=== PATIENT | male | born 1950 | race Caucasian/White ===

== ENCOUNTER 2017-12-29 17:52 | Observation (INO) | payer OTHER, MEDICARE ==
[~2017-12-29] VITALS: Ht 175.3 cm; Wt 67.1 kg
[~2017-12-29 17:52] MED LIST: BETA CAROT10000 UNIT PO; BETAPACE80 MG PO; CALCIUM600 M3 PO; CAYENNE450 MG PO; COZAAR50 M1 PO; ECHINACEA350 MG PO; ELIQUIS5 M1 PO; INTESTINAL FORMULA PO; LYCOPENE PO; MY FAVORITE MU237 ML PO; PROSTATE THERA1 EACH PO; VITAMIN C500 M6 PO; VITAMIN E100 UNI3 PO; [UNRECOGNIZED DRUG - OTHER] PO; [UNRECOGNIZED DRUG - OTHER] PO
[2017-12-29 18:50] LABS: ABSOLUTE BASOPHIL COUNT 0 /CUMM (0.0-0.2); ABSOLUTE EOSINOPHIL COUNT 0.1 /CUMM (0.0-0.7); ABSOLUTE GRANULOCYTE CT 6.9 /CUMM (1.4-6.5); ABSOLUTE LYMPH COUNT 1.1 /CUMM (1.2-3.4); ABSOLUTE MONOCYTE COUNT 0.7 /CUMM (0.10-0.60); BASOPHIL % 0 % (0.0-2.0); EOSINOPHIL % 1.2 % (0-5); GRANULOCYTE % 78.8 % (42.2-75.2); HEMATOCRIT 42.4 % (42-52); MEAN CORPUSCULAR HGB CONC 33.7 G/DL (33.0-37.0); MEAN CORPUSCULAR VOLUME 94.9 FL (80.0-94.0); MEAN PLATELET VOLUME 7.7 FL (7.4-10.4); PLATELET COUNT 253 /CUMM (130-400); RBC DISTRIBUTION WIDTH 13.5 % (11.5-14.5); RED BLOOD CELL CT 4.47 /CUMM (4.70-6.10); WHITE BLOOD CELL COUNT 8.8 /CUMM (4.8-10.8)
--- NOTE | 2017-12-29 18:56 | ED GENERAL ADULT ---
History of Present Illness General Chief Complaint: Psychiatric Related Complaint Stated Complaint: CONFUSION Source: patient Exam Limitations: confusion, poor historian Vital Signs & Intake/Output Vital Signs & Intake/Output Vital Signs Date Time Temp Pulse Resp B/P B/P Pulse O2 O2 Flow FiO2 Mean Ox Delivery Rate 12/29 2251 97.8 72 20 123/79 97 12/29 1806 98.4 111 20 118/76 99 Room Air ED Intake and Output 12/30 0000 12/29 1200 Intake Total Output Total Balance Patient 148 lb Weight Weight Reported by Patient Measurement Method Allergies Coded Allergies: No Known Allergies (07/31/17) Reconcile Medications Apixaban (Eliquis) 5 MG TABLET 5 MG PO BID ATRIAL FIBRILLATION TAKE DIRECTED Ascorbate Calcium (Vitamin C) (Unknown Strength) TABLET (Unknown Dose) PO DAILY VITAMIN SUPPORT (Reported) Beta-Carotene (Beta Carotene) (Unknown Strength) CAPSULE (Unknown Dose) PO DAILY SUPPLEMENT (Reported) Calcium (Elemental-Fr Calcarb) (Calcium) (Unknown Strength) TABLET (Unknown Dose) PO DAILY SUPPLEMENT (Reported) Echinacea Purpurea Aerial (Echinacea) (Unknown Strength) CAPSULE (Unknown Dose ) PO DAILY SUPPLEMENT (Reported) [INTESTINAL FORMULA 1] (Unknown Strength) (Unknown Dose) PO EOD GI (Reported) Losartan Potassium (Cozaar) 50 MG TABLET 1 TAB PO DAILY BP (Reported) Lycopene (Unknown Strength) CAPSULE (Unknown Dose) PO DAILY SUPPLEMENT ( Reported) M-17/Nettle/Pumpk/Saw Palmet (Prostate Therapy Softgel) (Unknown Strength) CAPSULE (Unknown Dose) PO DAILY SUPPLEMENT (Reported) [MALE FORMULA] (Unknown Strength) (Unknown Dose) PO DAILY SUPPLEMENT ( Reported) Multivitamin (My Favorite Multiple) (Unknown Strength) LIQUID (Unknown Dose) PO DAILY VITAMIN SUPPORT (Reported) Sotalol (Betapace) 80 MG TABLET 80 MG PO BID ATRIAL FIBRILLATION TAKE DIRECTED [SUPER FOOD PLUS] SUPPLEMENT (Reported) Vitamin E (Unknown Strength) CAPSULE (Unknown Dose) PO DAILY VITAMIN SUPPORT (Reported) Triage Note: PT BIBA FROM HOME AFTER HAVING SOME CONFUSION. PT EMS STATE PT WAS JUST HERE YESTERDAY FOR SAME. PT IS CALM AND COOPERATIVE WANDING TAKING PLACE AT THIS TIME. PT IS ALERT AT THIS TIME OFFERS NO COMPLAINTS Triage Nurses Notes Reviewed? yes Onset: Abrupt Duration: unknown duration Timing: recent history HPI: 12/29/17 7 PM 67-year-old man with a history of atrial fibrillation on Elliquis. He's had multiple episodes of agitation and confusion over the past 5 months. Outpatient neurology consultation to date has not been obtained and the patient's is unclear on what the patient's diagnosis is. On physical exam he is awake and alert but is completely confused. There is no evidence of trauma. He was seen in the emergency department approximately 24 hours prior to arrival. An extensive workup was done which was unremarkable other than atrophy on CT scan. He likely has a diagnosis of dementia. Past History Travel History Traveled to [place] past 21 day No Medical History Any Pertinent Medical History? see below for history Neurological: NONE EENT: NONE Cardiovascular: AFIB Respiratory: NONE Gastrointestinal: LEFT INGUINAL HERNIA Hepatic: NONE Renal: NONE Musculoskeletal: NONE Psychiatric: NONE Endocrine: NONE Blood Disorders: NONE Cancer(s): NONE History of MRSA: No History of VRE: No History of CDIFF: No Surgical History Surgical History: non-contributory, N Psychosocial History Who do you live with Spouse What is your primary language Swedish Tobacco Use: Quit >30 days ago ETOH Use: denies use Illicit Drug Use: denies illicit drug use Family History Hx Contributory? No Review of Systems Review of Systems Constitutional: Denies: fever. EENTM: Reports: no symptoms. Respiratory: Denies: short of breath. Cardiovascular: Denies: chest pain. GI: Reports: no symptoms. Genitourinary: Reports: no symptoms. Musculoskeletal: Reports: no symptoms. Skin: Reports: no symptoms. Neurological/Psychological: Reports: confusion. Hematologic/Endocrine: Reports: no symptoms. Immunologic/Allergic: Reports: no symptoms. Physical Exam Physical Exam General Appearance: alert, awake, anxious, mild distress Head: atraumatic, normal appearance Eyes: Bilateral: normal appearance, PERRL, EOMI. Ears, Nose, Throat: normal pharynx, normal ENT inspection Neck: normal inspection, supple Respiratory: normal breath sounds, chest non-tender, no respiratory distress Cardiovascular: irregularly irregular Peripheral Pulses: 4+ radial (R), 4+ radial (L) Gastrointestinal: soft, non-tender Back: decreased range of motion Extremities: no edema Neurologic/Psych: awake, alert Skin: intact, normal color, warm/dry Core Measures ACS in differential dx? No CVA/TIA Diagnosis: No Sepsis Present: No Sepsis Focused Exam Completed? No Progress Differential Diagnoses I considered the following diagnoses in my evaluation of the patient: [Dementia, adverse drug reaction, delirium] Plan of Care: Orders Procedure Date/time Status Heart Healthy Diet 12/30 B Active Patient Data 12/30 22 Active Continuous Observation Monitor 12/[address] in observation 12/30 19 Active Vital Signs 12/30 19 Active Code Status 12/30 19 Active Add-on Test (ER Only) 12/29 185 Active VDRL 12/29 1833 Active ETHANOL 12/29 1833 Complete URINE DRUG SCREEN FOR ER ONLY 12/29 1823 Active URINALYSIS 12/29 1823 Active COMPREHENSIVE METABOLIC PANEL 12/29 1823 Complete CBC WITHOUT DIFFERENTIAL 12/29 1823 Complete Current Medications Sig/Dennis Start time Last Medication Dose Stop Time Status Admin Losartan Potassium 50 MG DAILY 12/30 1000 UNVr (Cozaar) Apixaban 5 MG BID 12/30 24 UNVr (Eliquis) Sotalol HCl 80 MG BID 12/30 24 UNVr (Betapace) Laboratory Tests 12/29/171833: Anion Gap 8, Estimated GFR > 60, BUN/Creatinine Ratio 23.3, Glucose 86, Calcium 9.3, Total Bilirubin 0.7, AST 12 L, ALT 28, Alkaline Phosphatase 43, Total Protein 6.3, Albumin 3.7, Globulin 2.6, Albumin/Globulin Ratio 1.4, CBC w Diff NO MAN DIFF REQ, RBC 4.47 L, MCV 94.9 H, MCH 32.0 H, MCHC 33.7, RDW 13.5, MPV 7.7, Gran % 78.8 H, Lymphocytes % 12.0 L, Monocytes % 8.0, Eosinophils % 1.2, Basophils % 0, Absolute Granulocytes 6.9 H, Absolute Lymphocytes 1.1 L, Absolute Monocytes 0.7 H, Absolute Eosinophils 0.1, Absolute Basophils 0, RPR Titer/FTA Pending, Serum Alcohol < 10.0 Initial ED EKG: none Departure Departure Disposition: STILL A PATIENT Condition: Stable Clinical Impression Primary Impression: Altered mental status Referrals: Tone MONTES,Gigi Nino (PCP/Family) Departure Forms: Customer Survey General Discharge Information Observation Note Spoke With: Naty Turner MD Physician Advisor Notified: NATHALY MONTES,ASPEN Vu Place Patient In: Non-ED OBS Care Area Rationale for Observation: My rational for observation is as follows [the patient needs placement in observation for serial neurological exams, neurology consultation, psychiatric consultation, likely placement into a geriatric unit as the patient is unsafe at home. Critical Care Note Critical Care Note Critical Care Time: 30-74 min
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
[2017-12-30] MEDS ORDERED: BETAPACE80 MG PO (02:07)
[2017-12-30 02:52] VITALS: BP 140/98
[2017-12-30 07:04] VITALS: BP 162/95
--- NOTE | 2017-12-30 10:38 | PN- Housestaff ---
See Addendum Constantine Camacho MD 12/30/17 1027: Subjective Follow-up For: altered mental status confusion agitation Subjective: patient is awake alert calm and cooperative oriented to self only at this time no focal neurological deficit follows commands but sometimes difficult to comprehend speech or inappropriate but fluent responses, perseverating on his hernia, hard of hearing Review of Systems Constitutional: Reports: see HPI. Objective Last 24 Hrs of Vital Signs/I&O Vital Signs Date Time Temp Pulse Resp B/P B/P Pulse O2 O2 Flow FiO2 Mean Ox Delivery Rate 12/30 0949 62 150/98 12/30 0704 98.1 65 20 162/95 97 12/30 0252 98.0 69 20 140/98 97 Room Air 12/30 0215 97.6 80 16 145/80 96 Room Air 12/29 2251 97.8 72 20 123/79 97 12/29 1806 98.4 111 20 118/76 99 Room Air Intake & Output 12/30 1600 12/30 0800 12/30 0000 Intake Total 60 Output Total Balance 60 Intake, Oral 60 Patient 67.132 kg 67.132 kg Weight Weight Reported by Patient Measurement Method Physical Exam General Appearance: Alert, Cooperative, No Acute Distress, oriented to self, hard of hearing Cardiovascular: Regular Rate, Normal S1, Normal S2, No Murmurs Lungs: Clear to Auscultation, Normal Air Movement Abdomen: Normal Bowel Sounds, Soft, No Tenderness, No Masses, palpable and reducible left inguinal hernia Extremities: No Clubbing, No Cyanosis, No Edema, Normal Pulses Current Medications: Current Medications Sig/Dennis Start time Last Medication Dose Route Stop Time Status Admin Apixaban 5 MG BID 12/30 1000 CAN PO Apixaban 5 MG BID 12/30 0230 AC 12/30 PO 0949 Losartan Potassium 50 MG DAILY 12/30 1000 CAN PO Losartan Potassium 50 MG DAILY 12/30 1000 AC 12/30 PO 0949 Sotalol HCl 80 MG BID 12/30 0230 AC 12/30 PO 0949 Thiamine HCl 100 MG DAILY 12/30 1000 AC 12/30 PO 0949 Last 24 Hrs of Lab/Santos Results Last 24 Hrs of Labs/Mics: Laboratory Tests 12/30/17 0647: HIV 1&2 Ab Western Blot NONREACTIVE 12/29/17 1834: Anion Gap 8, Estimated GFR > 60, BUN/Creatinine Ratio 23.3, Glucose 86, Calcium 9.3, Total Bilirubin 0.7, AST 12 L, ALT 28, Alkaline Phosphatase 43, Total Protein 6.3, Albumin 3.7, Globulin 2.6, Albumin/Globulin Ratio 1.4, Vitamin B12 546, TSH 1.410, Free T4 1.80, CBC w Diff NO MAN DIFF REQ, RBC 4.47 L, MCV 94.9 H, MCH 32.0 H, MCHC 33.7, RDW 13.5, MPV 7.7, Gran % 78.8 H, Lymphocytes % 12.0 L, Monocytes % 8.0, Eosinophils % 1.2, Basophils % 0, Absolute Granulocytes 6.9 H, Absolute Lymphocytes 1.1 L, Absolute Monocytes 0.7 H, Absolute Eosinophils 0.1, Absolute Basophils 0, RPR Titer/FTA Pending, Serum Alcohol < 10.0 Assessment/Plan Assessment: 65 year old gentleman with past medical history of atrial fibrillation, hypertension, inguinal hernia with planned repair, and history of previous delirium and agitation is being observed at [facility] for increasingly frequent episodes of confusion and agitation according to the family. Altered mental status: First noted after preop sedation with versed, case cancelled for atrial fibrillation but developed acute delirium and hospitalized with agitation Multiple episodes of confusion and agitation since August 2017 noted by the to be more frequent with waking in the morning and after a nap lasting up to several hours. Reported agitation and anger without physical violence directed mostly towards her less their children Neurology consult-Early onset dementia vs vascular dementia with newly diagnosed atrial fibrillation Neurocognitive dysfunction or possibe lewy body reported hallucinations? Awaiting hearing aids for significant difficulty hearing 12/28/[address] There is no evidence of acute intracranial hemorrhage or territorial infarction. No abnormal mass effect or midline shift is seen. Xie to white matter differentiation is well preserved. No extra-axial fluid collections are identified. There is mild commensurate prominence of the ventricles and sulci consistent with mild diffuse volume loss. There are areas of low attenuation in the periventricular and subcortical white matter consistent with chronic microvascular changes Psychiatry consult: h/o PTSD? no h/o known hospitalizations Check reversible causes of delirium, thyroid function, vitamin B12, RPR, vrdrl Start thiamine Hold other meds Avoid delirium triggers and medications Atrial fibrillation: Continue eliquis and sotalol Eliquis will need to be held in the future if patient remains in hospital for elective left inguinal hernia repair with Dr. Schwab on 01/06/2018. CT abdomen-no incarceration, obstruction, or inflammation of colonic segment herniated left inguinal canal Heart healthy diet DVT ppx-on Eliquis Full code Remain in observation pending psychiatry and neurology evaluation and recommendations, possible need for MRI Problem List: 1. Altered mental status 2. Agitation 3. Atrial fibrillation Pain Ratin Pain Location: n/a Pain Goal: Pain 4 or less Pain Plan: prn Tomorrow's Labs & Rationales: none Tessie Styles MD 12/30/17 1112: Attending MD Review Statement Attending Statement Attending MD Statement: examined this patient, discuss w/resident/PA/HELIARC WELDER, agreed w/resident/PA/HELIARC WELDER, reviewed EMR data (avail) Attending Assessment/Plan: 67M PMH atrial fibrillation, hypertension, inguinal hernia with planned repair brought in by family for 6 months of progressive intermittent agitation, with worsening cognitive function and memory dysfunction for the past month, also very hard of hearing. No history of trauma, encephalitis, or drug use. Patient appears confused and has word finding difficulties on exam, with MMSE 4/30. No acute neurological dysfunction is noted. High suspicion for degenerative disease such as Frontotemporal dementia or Lewy Body dementia. Plan - Continue on general medicine - Psychiatry and neurology consults - TSH, Utox normal - Continue home medications - Avoid opioids/benzos - DVT PPx - Anticipated discharge later today or tomorrow morning pending neurology evaluation
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
[2017-12-30] MEDS ORDERED: ELIQUIS5 M1 PO (13:34)
--- NOTE | 2017-12-30 13:37 | Patient Discharge Instructions ---
Discharge Instructions General Discharge Information You were seen/treated for: altered mental status and agitation Special Instructions: Please follow up with your primary care physican and Dr. Seo of neurology within two weeks. You may need a MRI as an outpatient. Please stop your Eliquis 4 days prior to surgery. Acute Coronary Syndrome Inclusion Criteria At DC or during hospital stay patient has or had the following: ACS DIAGNOSIS No Discharge Core Measures Meds if any: Prescribed or Continued at Discharge Meds if any: NOT Prescribed or Continued at Discharge Congestive Heart Failure Inclusion Criteria At DC or during hospital stay patient has or had the following: CHF DIAGNOSIS No Discharge Core Measures Meds if any: Prescribed or Continued at Discharge Meds if any: NOT Prescribed or Continued at Discharge Cerebrovascular accident Inclusion Criteria At DC or during hospital stay patient has or had the following: CVA/TIA Diagnosis No Discharge Core Measures Meds if any: Prescribed or Continued at Discharge Meds if any: NOT Prescribed or Continued at Discharge Venous thromboembolism Inclusion Criteria VTE Diagnosis No VTE Type NONE VTE Confirmed by (Test) NONE Discharge Core Measures - Per Current guidelines, there needs to be overlap - treatment for the first 5 days of Warfarin therapy. - If discharged on Warfarin prior to 5 days of - overlap therapy, the patient will need to be - assessed for post discharge needs including - *Post discharge parental anticoagulation - *Warfarin and/or parental anticoagulation education - *Follow up date to check INR post discharge At least 5 days overlap therapy as Inpatient No Meds if any: Prescribed or Continued at Discharge Note: Overlap Therapy is Warfarin and Anticoagulant Meds if any: NOT Prescribed or Continued at Discharge
[2017-12-30] MEDS ORDERED: SEROQUEL25 M1 PO ×2 (13:39→13:44)
[2017-12-30 14:38] VITALS: BP 142/96
[2017-12-30 21:42] VITALS: BP 156/90
[2017-12-31 07:03] VITALS: BP 152/88
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
[2017-12-31 08:00] LABS: ABSOLUTE BASOPHIL COUNT 0 /CUMM (0.0-0.2); ABSOLUTE EOSINOPHIL COUNT 0.1 /CUMM (0.0-0.7); ABSOLUTE GRANULOCYTE CT 6.2 /CUMM (1.4-6.5); ABSOLUTE LYMPH COUNT 1.3 /CUMM (1.2-3.4); ABSOLUTE MONOCYTE COUNT 0.5 /CUMM (0.10-0.60); BASOPHIL % 0.2 % (0.0-2.0); EOSINOPHIL % 1.7 % (0-5); GRANULOCYTE % 75.5 % (42.2-75.2); HEMATOCRIT 46.8 % (42-52); MEAN CORPUSCULAR HGB 31.7 PG (27.0-31.0); MEAN CORPUSCULAR HGB CONC 33.4 G/DL (33.0-37.0); MEAN CORPUSCULAR VOLUME 95.1 FL (80.0-94.0); MEAN PLATELET VOLUME 8.4 FL (7.4-10.4); PLATELET COUNT 248 /CUMM (130-400); RBC DISTRIBUTION WIDTH 13.5 % (11.5-14.5); RED BLOOD CELL CT 4.93 /CUMM (4.70-6.10); WHITE BLOOD CELL COUNT 8.3 /CUMM (4.8-10.8)
--- NOTE | 2017-12-31 08:14 | Discharge Summary ---
Visit Information Visit Dates Admission Date: 12/30/17 Discharge Date: 12/31/17 Hospital Course Course Attending Physician: Tessie Styles MD Primary Care Physician: Gigi Wayne MD Hospital Course: 65 year old gentleman with PMH of atrial fibrillation, hypertension, inguinal hernia with planned repair, and history of previous delirium and agitation is being observed at [place] for increasingly frequent episodes of confusion and agitation according to the family. Atrial fibrillation was First noted after preop sedation for elective hernia repair < 6 months ago. At that time the patient was managed as an inpatient for atrial fibrillation and acute delirium. Since that admission the family noticed increased the frequency of confusion and agitation (since August 2017). The worsening of his agitation was difficult to be managed by at home, which prompted the ED visit. Reversible cause of dementia was excluded include normal TSH, B12, ESR, VDRL, metabolic panel and Utox. Reportedly he had an MRI as a result of that visit which was said to be unrevealing. CAT scan of the head here at [facility] showed no significant abnormalities, only mild volume loss. Given the symptom and signs neurology believes this can be a frontotemporal dementia. They recommended low-dose lorazepam or Seroquel on an as-needed basis should agitation become unmanageable. On discharge patient will be prescribed Seroquel 25 mg, 0.5-1 tablet can be used by mouth twice a day when necessary for agitation. The patient will benefit from speech therapy to hopefully better express himself and communicates. We will instruct the patient to follow with primary care doctor and neurologist as an outpatient. Allergies: Coded Allergies: No Known Allergies (07/31/17) Pertinent Lab Results: SERVICE DATE: 12/28/1726-6489-OQFT TYPE: CAT - CT HEAD WO IV CONTRAST EXAMINATION: CT HEAD WITHOUT CONTRAST CLINICAL INFORMATION: Altered mental status COMPARISON: 08/19/2017 TECHNIQUE: Contiguous axial imaging was performed from the skull base to vertex without intravenous contrast. DLP: 617 mGy-cm. FINDINGS: There is no evidence of acute intracranial hemorrhage or territorial infarction. No abnormal mass effect or midline shift is seen. Xie to white matter differentiation is well preserved. No extra-axial fluid collections are identified. No hydrocephalus. Proportional prominence of the ventricles and sulcal spaces is consistent with mild volume loss. Patchy periventricular and deep white matter hypoattenuation is consistent with mild small vessel ischemic changes. The osseous structures and soft tissues are normal. The mastoid air cells and visualized portions of the paranasal sinuses are well aerated. IMPRESSION: No acute intracranial pathology. Mild global cerebral volume loss with associated small vessel ischemic changes. This appearance is unchanged. DICTATED BY: Ross Caruso MD DATE/TIME DICTATED:12/28/172331 COMMERCIAL PHOTOGRAPHER:ANA LILIA DATE/TIME TRANSCRIBED:12/28/172331 Disposition Summary Disposition Principal Diagnosis: Degenerative dementia most likely frontotemporal dementia Additional Diagnosis: A. fib Discharge Disposition: SNF Discharge Instructions General Discharge Information Code Status: Full Code Patient's Diet: Heart healthy diet as tolerated Patient's Activity: As tolerated Follow-Up Instructions/Appts: Please follow-up with primary care doctor within 1 week Please follow-up with neurologist within 1 week post discharge Medications at Discharge Discharge Medications: Stop taking the following medications: Vitamin E (Vitamin E) 100 UNIT CAPSULE ORAL DAILY Ascorbate Calcium (Vitamin C) 500 MG TABLET ORAL DAILY Echinacea Purpurea Aerial (Echinacea) 350 MG CAPSULE ORAL DAILY Lycopene (Lycopene) 10 MG CAPSULE ORAL DAILY Beta-Carotene (Beta Carotene) 10,000 UNIT CAPSULE ORAL DAILY Multivitamin (My Favorite Multiple) 237 ML LIQUID ORAL DAILY Calcium (Elemental-Fr Calcarb) (Calcium) 600 MG CALCIUM (1,500 MG) TABLET ORAL DAILY [SUPER FOOD PLUS] ORAL DAILY M-17/Nettle/Pumpk/Saw Palmet (Prostate Therapy Softgel) (Unknown Strength) CAPSULE ORAL DAILY [INTESTINAL FORMULA 1] ORAL Every other day [MALE FORMULA] (Unknown Strength) ORAL DAILY Continue taking these medications: Losartan Potassium (Cozaar) 50 MG TABLET 1 Tablet ORAL DAILY Comments: Last Taken:12/31/17 Time:0914AM Sotalol (Betapace) 80 MG TABLET 80 Milligram ORAL TWICE DAILY Qty = 60 Instructions: TAKE DIRECTED Comments: Last Taken: 12/31/17 Time:0915AM This prescription has been renewed The following medications have been changed: Old: Apixaban (Eliquis) 5 MG TABLET 5 Milligram ORAL TWICE DAILY Qty = 60 New: Apixaban (Eliquis) 5 MG TABLET 5 Milligram ORAL TWICE DAILY Qty = 60 Instructions: TAKE DIRECTED Comments: Last Taken: 01/06/18 Time: 0914AM Copies To: Baljeet Seo MD; Gigi Wayne MD Copies To: Baljeet Seo MD; Tone MONTES,Gigi Nino
--- NOTE | 2017-12-31 11:20 | PN- Psychiatry ---
Assessment/Plan Impression: The patient had an episode yesterday afternoon, when he picked up a chair. Quetiapine was started on a low dose, as needed, and he received two doses. No other behavioral episodes were reported. EKG this morning showed SR 61 bpm, QTc prolongation of 504 mS. The quetiapine was discontinued, due to this prolongation. The patient has been calm and cooperative this morning, per nursing, but he does mention that he would like to go home. His supportive is present. We appreciate Dr. Seo's note from neurology. Suggestion: 1. Please evaluate the etiology of the QT prolongation, and correct, if possible. 2. Avoid delirium triggers, such as dehydration, anemia, pain, sleep deprivation , and emotional stress. Minimize nursing interventions at night to promote restful sleep. 3. Avoid anticholinergics, benzodiazepines, sedatives and opiate pain medications, as much as possible. 4. Advise if behavioral disturbances occur and re-direction does not work. 5. Complete a reversible dementia screen, including, but not limited to, Lyme titer. 6. The patient would benefit from a geriatric psychiatry admission to stabilize on medications for his agitation. 7. Neurology referral after discharge. 8. We understand that the patient may be offered a bed in geriatric psychiatry today. Please advise them that the patient experienced prolongation of QTc on quetiapine. 9. I have ordered an add-on magnesium level. Please replete, if necessary, to the upper portionof the normal range. Monitor and replete potassium as necessary. Potassium today is WNL. Subjective Subjective: Alert, pleasant, hearing has improved, oriented to person, only. Upon a second request for month, he states September. The patient has difficulty with verbal questions, but can read and understand some written questions about the presence of anxiety and depression, he denies both. He denies SI and HI. Written: "ARE YOU SEEING ANYTHING THAT IS NOT REAL?", he answers, "It's all oak," and then , "No. It's all not here. It's not worth it for me." He is complaining of tinnitus. He reads the question, "FEEL CALM?" but states that he cannot see it. Objective Last 24 Hrs of Vital Signs/I&O Vital Signs Date Time Temp Pulse Resp B/P B/P Pulse O2 O2 Flow FiO2 Mean Ox Delivery Rate 12/31 1034 Room Air 12/31 0914 67 152/88 12/31 0703 98.0 67 18 152/88 97 12/30 2142 97.9 67 18 156/90 96 Room Air 12/30 1438 97.8 61 20 142/96 96 Room Air Intake & Output 12/31 1600 12/31 0800 12/31 0000 Intake Total 0 800 Output Total Balance 0 800 Intake, IV 0 Intake, Oral 0 800 Number 0 Bowel Movements Physical Exam: Not performed Physical Exam General Appearance: no apparent distress, awake Neurologic/Psychiatric: awake, alert, normal gait Current Medications: Current Medications Sig/Dennis Start time Last Medication Dose Route Stop Time Status Admin Apixaban 5 MG BID 12/30 0230 AC 12/31 PO 0914 Losartan Potassium 50 MG DAILY 12/30 1000 AC 12/31 PO 0914 Quetiapine Fumarate 12.5 MG BID PRN 12/30 1515 DC 12/30 PO 1813 Quetiapine Fumarate 25 MG BID PRN 12/30 1430 DC PO Sotalol HCl 80 MG BID 12/30 0230 AC 12/31 PO 0914 Thiamine HCl 100 MG DAILY 12/30 1000 AC 12/31 PO 0914 Results Last 24 Hrs of Labs/Mics: Laboratory Tests 12/31 12/31 12/30 0600 0545 1436 Chemistry Sodium (137 - 145 mmol/L) 141 Potassium (3.5 - 5.1 mmol/L) 4.1 Chloride (98 - 107 mmol/L) 101 Carbon Dioxide (22 - 30 mmol/L) 29 Anion Gap (5 - 16) 11 BUN (9 - 20 mg/dL) 10 Creatinine (0.7 - 1.2 mg/dL) 0.6 L Estimated GFR (>60 ml/min) > 60 BUN/Creatinine Ratio (7 - 25 %) 16.7 Hematology CBC w Diff NO MAN DIFF REQ WBC (4.8 - 10.8 /CUMM) 8.3 RBC (4.70 - 6.10 /CUMM) 4.93 Hgb (14.0 - 18.0 G/DL) 15.6 Hct (42 - 52 %) 46.8 MCV (80.0 - 94.0 FL) 95.1 H MCH (27.0 - 31.0 PG) 31.7 H MCHC (33.0 - 37.0 G/DL) 33.4 RDW (11.5 - 14.5 %) 13.5 Plt Count (130 - 400 /CUMM) 248 MPV (7.4 - 10.4 FL) 8.4 Gran % (42.2 - 75.2 %) 75.5 H Lymphocytes % (20.5 - 51.1 %) 16.2 L Monocytes % (1.7 - 9.3 %) 6.4 Eosinophils % (0 - 5 %) 1.7 Basophils % (0.0 - 2.0 %) 0.2 Absolute Granulocytes (1.4 - 6.5 /CUMM) 6.2 Absolute Lymphocytes (1.2 - 3.4 /CUMM) 1.3 Absolute Monocytes (0.10 - 0.60 /CUMM) 0.5 Absolute Eosinophils (0.0 - 0.7 /CUMM) 0.1 Absolute Basophils (0.0 - 0.2 /CUMM) 0 ESR Westergren (0 - 10 MM) 5 Serology Lyme Disease Antibody Pending
[2017-12-31 13:50] VITALS: BP 142/92
[2017-12-31] MEDS ORDERED: ELIQUIS5 M1 PO (14:14)
[2017-12-31 14:45] VITALS: BP 142/92
== END 2017-12-31 16:02 | disposition short-term general hospital (02) ==
LOC: ERH 17:52 → ERHI 12-30 00:20 → 2NB 12-30 00:20 → EDBEDREQ 12-30 01:06 → ENRESERV 12-30 01:46 → 2NB 12-30 02:43 → ENPENDDIS 12-31 14:18 → 2NB 12-31 16:02
PROVIDERS: Emergency Medicine; Internal Medicine Infectious Disease
DX: F03.90 Unspecified dementia, unspecified severity, without behavioral disturbance, psychotic disturbance, mood disturbance, and anxiety (principal); I48.91 Unspecified atrial fibrillation; Z79.01 Long term (current) use of anticoagulants; R45.1 Restlessness and agitation; I10 Essential (primary) hypertension; R44.1 Visual hallucinations; F43.10 Post-traumatic stress disorder, unspecified; Z79.899 Other long term (current) drug therapy
CPT/HCPCS: 86618; 36592; 80307; 81003; 82436; 87389; 93005; 93010; 99232; G0378; G0480